=== PATIENT | female | born 1990 | race Asian ===

== ENCOUNTER → 2021-03-10 14:55 | Outpatient (CLI) | payer OTHER, SELFPAY ==
--- NOTE | ~2021-03-10 | CT_ITS ---
EXAMINATION: CT abdomen pelvis wo con DATE: 03/10/2021 15:20 INDICATION: Right lower abdominal pain, right flank pain, hematuria TECHNIQUE: Computed tomography (CT) of the abdomen and pelvis was performed without intravenous contr ast. Automated exposure control and iterative reconstruction technique were employed. Exam dose: 167 .64 mGy-cm total exam DLP. COMPARISON: None. FINDINGS: The lung bases are clear. Normal heart size. No pericardial or pleural effusion. The liver, spleen, pancreas and adrenal glands are unremarkable. No bile duct or pancreatic duct dila tation. There are multiple bilateral nonobstructing renal calculi, measuring up to approximately 5 mm maximal dimension. No ureteral calculus or hydroureteronephrosis is noted on either side. Normal caliber of the abdominal aorta. No intraperitoneal or retroperitoneal or pelvic mass lesion or adenopathy or ascites. The appendix is not definitively localized. There is a prominent amount of fecal material in the colo n but no evidence of bowel obstruction or intraperitoneal free air. The urinary bladder, uterus and adnexal areas appear unremarkable. Included skeletal structures are unremarkable. IMPRESSION: ; No ureteral calculus or hydroureteronephrosis is evident. Reviewed, dictated and finalized at [facility]. Reviewed, dictated and finalized at [facility].
== END ==
DX: R10.9 Unspecified abdominal pain (principal); R31.9 Hematuria, unspecified
CPT/HCPCS: 74176